=== PATIENT | male | born 1990 ===

== ENCOUNTER 2016-11-14 20:30 | Emergency (ER) | payer BC ==
[2016-11-14 20:37] VITALS: BP 127/65; PULSE 74; RESP 18; TEMP 97.9; O2SAT 100
[2016-11-14] MEDS ORDERED: Ampicillin/Sulbactam 1.5 gm Inj IVPB STA (21:04)
[2016-11-14] MEDS ORDERED: Sodium Chloride 0.9% 1,000 ML IV STA (21:05)
[2016-11-14] MEDS ORDERED: Ampicillin/Sulbactam 3 GM in Sodium Chloride 0.9% 100 ML IVPB ONE (21:15)
[2016-11-14 21:47] LABS: ALB/GLOB RATIO 1.2 (1.0-2.1); ALKALINE PHOSPHATASE 123 U/L (38-126); ALT/SGPT 48 U/L (21-72); AST/SGOT 42 U/L (17-59); BILIRUBIN,TOTAL 0.8 mg/dl (0.2-1.3); BLOOD UREA NITROGEN 16 mg/dl (9-20); CALCIUM 8.9 mg/dL (8.4-10.2); CARBON DIOXIDE 27 mmol/L (22-30); CHLORIDE 103 mmol/L (98-107); GFR AFRICAN-AMERICAN > 60; GLUCOSE,RANDOM 99 mg/dL (75-110); POTASSIUM 4.3 MMOL/L (3.6-5.0); SODIUM 143 mmol/l (132-148); TOTAL PROTEIN 7.1 G/DL (6.3-8.2)
[2016-11-14 21:52] LABS: BASO % 0.8 % (0.0-2.0); EOS # 0.1 K/uL (0.0-0.7); EOS % 3.2 % (0.0-4.0); HEMATOCRIT 41.9 % (35.0-51.0); LYMPH # 2.4 K/uL (1.0-4.3); LYMPH % 55.4 % (20.0-40.0); MEAN CELL VOLUME 86.8 fl (80.0-94.0); MEAN CORPUSCULAR HEMOGLOBIN 29.2 pg (27.0-31.0); MEAN CORPUSCULAR HGB CONC 33.6 g/dL (33.0-37.0); MEAN PLATELET VOLUME 10.3 fl (7.2-11.7); MONO # 0.6 K/uL (0.0-0.8); MONO % 14.4 % (0.0-10.0); NEUT # 1.2 K/uL (1.8-7.0); NEUT % 26.2 % (50.0-75.0); NRBC % 0.2 % (0.0-0.0); RED CELL DISTRIBUTION WIDTH 12.3 % (11.5-14.5); WHITE BLOOD COUNT 4.4 K/uL (4.8-10.8)
--- NOTE | 2016-11-14 22:18 | ED PDOC ---
Upper Extremity Pain/Injury Time Seen by Provider: 11/14/16 20:50 Chief Complaint (Nursing): Finger,Hand,&Wrist Chief Complaint (Provider): Right index finger pain, swelling x 14 days History Per: Patient History/Exam Limitations: no limitations Onset/Duration Of Symptoms: Days Current Symptoms Are (Timing): Still Present Quality: Aching Severity: Moderate Pain Scale Rating Of: 5 Additional Complaint(s): Pt states he was bite by a cat on 10/31/16. Pt states he was not home in [place] and went to see a local doctor who gave him bactrim. Pt states he is not done with it but he skipped a few days. Pt states that the finger continues to have swelling, tightness in the finger. No fever/chills. Past Medical History Reviewed: Historical Data, Nursing Documentation, Vital Signs Vital Signs: Last Vital Signs Temp 97.9 F 11/14/16 20:33 Pulse 74 11/14/16 20:33 Resp 18 11/14/16 20:33 BP 127/65 11/14/16 20:33 Pulse Ox 100 11/14/16 20:33 - Medical History PMH: No Chronic Diseases - Surgical History Surgical History: No Surg Hx - Family History Family History: States: Unknown Family Hx - Living Arrangements Living Arrangements: With Family - Social History Current smoker - smoking cessation education provided: No Alcohol: Occasional Drugs: Denies - Immunization History Hx Tetanus Toxoid Vaccination: Yes - Home Medications Home Medications: Ambulatory Orders Medication Instructions Recorded Amoxicillin/Clavulanate [Augmentin 1 tab PO BID #20 tab 11/14/16 875 MG-125 MG] Sulfamethoxazole/Trimethoprim 1 each PO Q12H 11/14/16 [Bactrim 400-80 mg Tablet] - Allergies Allergies/Adverse Reactions: Allergies Allergy/AdvReac Type Severity Reaction Status Date / Time No Known Allergies Allergy Verified 11/14/16 20:33 Review of Systems ROS Statement: Except As Marked, All Systems Reviewed And Found Negative Skin: Positive for: Other (Erythema of the right index finger ) Physical Exam - Reviewed Nursing Documentation Reviewed: Yes Vital Signs Reviewed: Yes - Physical Exam Appears: Positive for: Well, Non-toxic, No Acute Distress Head Exam: Positive for: ATRAUMATIC, NORMAL INSPECTION, NORMOCEPHALIC Skin: Positive for: Warm. Negative for: Normal Color ((+) erythema of the right index finger with edema ) Eye Exam: Positive for: Normal appearance ENT: Positive for: Normal ENT Inspection Neck: Positive for: Normal, Painless ROM Respiratory: Negative for: Accessory Muscle Use, Respiratory Distress Back: Positive for: Normal Inspection Extremity: Positive for: Normal ROM, Swelling, Other (Pts finger held slightly flexed however no pain with extension, non-tender anterior index finger ). Negative for: Tenderness, Deformity Neurologic/Psych: Positive for: Alert - Laboratory Results Result Diagrams: 11/14/16 21:30 11/14/16 21:30 - ECG O2 Sat by Pulse Oximetry: 100 Medical Decision Making Medical Decision Making: Discussed return to the ER for any worsening pain, swelling or fever. Disposition - Clinical Impression Clinical Impression: Wound infection - Patient ED Disposition Is Patient to be Admitted: No Counseled Patient/Family Regarding: Diagnosis, Need For Followup, Rx Given - Disposition Referrals: [facility] [Outside] Disposition: Routine/Home Disposition Time: 22:23 Condition: GOOD Prescriptions: Amoxicillin/Clavulanate [Augmentin 875 MG-125 MG] 1 tab PO BID #20 tab Instructions: Animal Bite (ED)
--- NOTE | 2016-11-15 10:48 | RAD ---
PROCEDURE: Right Index finger radiographs. HISTORY: pain, edema, erythema COMPARISON: None. TECHNIQUE: AP radiograph of the right hand, as well as spot oblique and lateral images of index finger were obtained. FINDINGS: RIGHT INDEX FINGER: Normal right index finger, without fracture or focal lesion. Remainder of the right hand (as seen on the AP view) grossly intact. JOINTS: Normal. SOFT TISSUES: There is mild soft tissue swelling in the index finger. OTHER FINDINGS: None. IMPRESSION: No acute fracture or dislocation. Mild soft tissue swelling in the index finger.
== END 2016-11-14 22:38 | disposition home or self-care (01) ==
LOC: H.ER 20:30
DX: L08.9 Local infection of the skin and subcutaneous tissue, unspecified (principal)
CPT/HCPCS: 73140; 80053; 85025; 87040; 96365; 99284; J0295; J7040